=== PATIENT | female | born 1970 | race African-American/Black ===

== ENCOUNTER → 2019-04-21 18:24 | Outpatient (CLI) | payer OTHER, SELFPAY ==
--- NOTE | ~2019-04-21 | MM_ITS ---
EXAMINATION: MM screening robi BI w bindu HISTORY: Screening mammogram TECHNIQUE: Craniocaudal and mediolateral oblique 3-D tomosynthesis images were obtained and synthetic 2-D images were generated. CAD analysis was submitted and interpreted. COMPARISON: 04/07/2018 complete right breast ultrasound 02/25/2018, 08/31/2016, 04/25/2015 bilateral digital screening mammogram examinations 11/19/2012 bilateral diagnostic digital mammogram and bilateral breast ultrasound examination BREAST PARENCHYMAL COMPOSITION: The breasts are heterogeneously dense, which may obscure small masses . FINDINGS: Multiple surgical clips present in the central right breast; history of prior benign breast biopsy. There are multiple low-density circumscribed masses of the both breasts, more numerous on the left, m easuring up to approximately 2 cm maximal dimension on the left and 7.5 mm on the right; there is wax ing and waning of such benign-appearing opacities over serial examinations consistent with fibrocysti c changes. There is no evidence of suspicious mass, calcification, or architectural distortion to sug gest malignancy in either breast. There has been no suspicious interval change. IMPRESSION: 1. No mammographic evidence of malignancy. 2. Recommend routine screening mammography in one year. BI-RADS Category 2: Benign finding(s). Reviewed, dictated and finalized at location A. 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
== END ==
PROVIDERS: PCP Family Medicine; Visit Provider Family Medicine
DX: Z12.31 Encounter for screening mammogram for malignant neoplasm of breast (principal)
CPT/HCPCS: 77063; 77067

== ENCOUNTER → 2020-01-08 14:06 | Outpatient (CLI) | payer OTHER, SELFPAY ==
--- NOTE | ~2020-01-08 | US_ITS ---
EXAMINATION: US pelvic complete w TV EXAM DATE: 01/08/2020 14:57 INDICATION: Hypertrophy of uterus N85.2 - Hypertrophy of uterus . TECHNIQUE: Pelvic transabdominal and transvaginal sonogram was performed. There are multiple graysca le and Doppler images available for interpretation. There is no prior study for comparison. FINDINGS: Uterus measures 6.4 x 4.3 x 3.4 cm, is retroverted. A focal 3 cm region was measured, prob able fibroid in the fundus. Endometrial stripe measures 5 mm, within normal limits. There are naboth magan cysts. There is no free pelvic fluid. Right adnexa: The ovary measures 3.2 x 2.7 x 3.3 cm and is morphologically normal. Ovarian vascular f low confirmed. Left adnexa: The ovary measures 2.7 x 1.1 x 2.0 cm and is morphologically normal. Ovarian vascular fl ow confirmed. IMPRESSION: 1. Probable fundal fibroid. Overall size of uterus within normal limits. Reviewed, dictated and finalized at location A. 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
== END ==
PROVIDERS: Visit Provider Obstetrics & Gynecology
DX: N85.2 Hypertrophy of uterus (principal)
CPT/HCPCS: 76830; 76856

== ENCOUNTER 2021-06-05 10:00 | Outpatient (CLI) | payer OTHER, SELFPAY ==
--- NOTE | ~2021-06-05 | XR_ITS ---
EXAMINATION: XR hip LT min 2V DATE: 06/05/2021 10:31 INDICATION: Low back pain radiating down the left leg. TECHNIQUE: 2 views of left hip were obtained. COMPARISON: None. FINDINGS: Bone alignment is normal. No fracture. There is mild left hip osteoarthritis. IMPRESSION: 1. Mild left hip osteoarthritis. Reviewed, dictated and finalized at location B.
--- NOTE | ~2021-06-05 | XR_ITS ---
EXAMINATION: XR lumbar spine min 4V EXAM DATE: 06/05/2021 10:31 INDICATION: Low back pain down left leg. TECHNIQUE: Lumber spine frontal, lateral, bilateral oblique projections. Coned down frontal and lat eral L5-S1 lumbar projections for interpretation. Comparison is made to prior examination from 2017. FINDINGS: There is mild to moderate lower, mild mid lumbar facet arthropathy. Mild disc disease from L3 through S1. No spondylolysis. The vertebral bodies are aligned in the AP dimension. Sacrum, sacroi liac joints, sacral arcuate lines are intact. Paraspinal soft tissue is unremarkable. Difficult to ap preciate significant interval change compared to 2018. IMPRESSION: Mild to moderate lower lumbar facet arthropathy, mild disc disease. Reviewed, dictated and finalized at location A. IMPRESSION: Mild to moderate lower lumbar facet arthropathy, mild disc disease .
== END 2021-06-05 10:01 | disposition home or self-care (01) ==
LOC: ANHIMG 10:07
PROVIDERS: PCP Family Medicine; Visit Provider Nurse Practitioner Gerontology
DX: M47.816 Spondylosis without myelopathy or radiculopathy, lumbar region (principal); M16.12 Unilateral primary osteoarthritis, left hip
CPT/HCPCS: 72110; 73502

== ENCOUNTER 2021-07-10 18:30 | Outpatient (CLI) | payer OTHER, SELFPAY ==
--- NOTE | ~2021-07-10 | CT_ITS ---
EXAMINATION: CT lumbar spine wo con DATE: 07/10/2021 19:01 INDICATION: Low back pain, unspecified. TECHNIQUE: Computed tomography (CT) of the lumbar spine was performed without intravenous contrast. A utomated exposure control and iterative reconstruction technique were employed. The dose-length produ ct was 835.19 mGy-cm. COMPARISON: Lumbar spine radiographs 06/05/2021 FINDINGS: There is 4 degrees dextrocurvature of lumbar spine. Vertebral body heights are normal. Ther e is mildly decreased disc height at L3-L4. The following disc levels are specifically discussed: L1-L2: The disc does not extend beyond the endplate margin. There is mild bilateral facet joint osteo arthritis. There is no neural foraminal stenosis. There is no central canal stenosis. L2-L3: The disc is bulging. There is mild bilateral facet joint osteoarthritis. There is mild bilater al neural foraminal stenosis. There is mild central canal stenosis. L3-L4: The disc is bulging. There is mild right and moderate left facet joint osteoarthritis. There i s mild bilateral neural foraminal stenosis. There is mild central canal stenosis. L4-L5: The disc is bulging. There is moderate right and severe left facet joint osteoarthritis. There is mild bilateral neural foraminal stenosis. There is mild central canal stenosis. L5-S1: The disc is mildly bulging. There is moderate right and severe left facet joint osteoarthritis . There is no neural foraminal stenosis. There is mild central canal stenosis. IMPRESSION: 1. Mild lumbar spondylosis. Reviewed, dictated and finalized at location A. IMPRESSION: 1. Mild lumbar spondylosis.
== END 2021-07-10 18:31 | disposition home or self-care (01) ==
PROVIDERS: PCP Family Medicine; Visit Provider Nurse Practitioner Gerontology
DX: M47.896 Other spondylosis, lumbar region (principal)
CPT/HCPCS: 72131

== ENCOUNTER 2022-12-24 13:25 | Emergency (ER) | payer OTHER, SELFPAY ==
--- NOTE | 2022-12-24 13:30 | PC.NURSE ---
patient called for triage states unable to wait at this time. patient alert and oriented x4 adbised to come back to ER if symptoms get worse.
== END 2022-12-24 13:30 | disposition left against medical advice (07) ==
PROVIDERS: PCP Family Medicine
DX: Z53.21 Procedure and treatment not carried out due to patient leaving prior to being seen by health care provider (principal)
CPT/HCPCS: 99199

== ENCOUNTER 2023-01-07 09:54 | Outpatient (CLI) | payer OTHER, SELFPAY ==
[2023-01-07 10:22] LABS: Basophils Absolute Auto 0.1 K/mm3 (0.0-0.1); Basophils Percent Auto 0.8 % (0.2-1.2); Eosinophils Absolute Auto 0.1 K/mm3 (0-0.3); Eosinophils Percent Auto 0.9 % (0-4.4); Hematocrit 40.2 % (37.0-47.0); Hemoglobin 13.2 g/dL (12.0-15.0); Immature Granulocyte Absolute 0.01 K/mm3 (0.00-0.031); Immature Granulocyte Percent A 0.2 % (0-0.5); Lymphocytes Absolute Auto 2.15 K/mm3 (0.9-3.2); Mean Corpuscular HGB Conc 32.8 g/dl (32-36); Mean Corpuscular Hemoglobin 29.7 pg (26-34); Mean Corpuscular Volume 90.5 fl (80-100); Mean Platelet Volume 10.9 fl (7.4-10.4); Monocytes Absolute Auto 0.3 K/mm3 (0.1-0.6); Monocytes Percent Auto 5.1 % (2.6-8.5); Neutrophils Absolute Auto 3.9 K/mm3 (1.3-6.7); Platelet Count Result 187 k/mm3 (150-375); Red Blood Count 4.44 M/mm3 (4.2-5.4); Red Cell Distribution Width 12.8 % (11.5-14.5); White Blood Count 6.5 K/mm3 (4.5-10.0)
[2023-01-07 10:33] LABS: Alanine Aminotransferase 15 U/L (6-35); Albumin Level 4.3 g/dL (3.5-5.1); Alkaline Phosphatase 112 U/L (38-126); Anion Gap 9 mmol/L (8-16); Aspartate Amino Transferase 20 U/L (14-36); Bilirubin,Total 0.8 mg/dL (0.2-1.3); Blood Urea Nitrogen 20 mg/dL (7-17); Calcium 9.7 mg/dL (8.4-10.2); Carbon Dioxide 28 mmol/L (22-30); Chloride 104 mmol/L (98-107); Cholesterol 171 mg/dL (0-200); Estimated Glomerular Filt Rate 57; Glucose 93 mg/dL (65-110); HDL Direct 42 mg/dL; Potassium 3.9 mmol/L (3.4-5.0); Sodium 141 mmol/L (137-145); Triglycerides 48 mg/dL (<150)
[2023-01-07 10:44] LABS: LDL Cholesterol Direct 95 mg/dL
== END 2023-01-07 09:55 | disposition home or self-care (01) ==
LOC: ANHLAB 09:55
PROVIDERS: PCP Family Medicine; Visit Provider Family Medicine
DX: E78.2 Mixed hyperlipidemia (principal); I10 Essential (primary) hypertension
CPT/HCPCS: 36415; 80053; 80061; 85025

== ENCOUNTER 2023-10-02 16:39 | Outpatient (CLI) | payer OTHER, SELFPAY ==
[2023-10-02 17:19] LABS: Alanine Aminotransferase 12 U/L (6-35); Albumin Level 4.4 g/dL (3.5-5.1); Alkaline Phosphatase 137 U/L (38-126); Aspartate Amino Transferase 21 U/L (14-36); Bilirubin,Total 0.3 mg/dL (0.2-1.3)
== END 2023-10-02 16:40 | disposition home or self-care (01) ==
LOC: ANHLAB 16:41
PROVIDERS: PCP Family Medicine; Visit Provider Obstetrics & Gynecology
DX: N95.1 Menopausal and female climacteric states (principal)
CPT/HCPCS: 36415; 80076

== ENCOUNTER 2023-12-27 01:35 | Day surgery (SDC) | payer OTHER, SELFPAY ==
[2023-12-17 13:40] VITALS: BMI 34.4
[2023-12-27 07:48] VITALS: BP 134/80; PULSE 86; RESP 16; TEMP 36.2; O2SAT 100
--- NOTE | 2023-12-27 07:56 | WPDANESEPPF ---
Anes - Initial Pre Proc Eval Procedure: Operation Date: 12/27/23 09:00 Proposed Procedures p Screening Colonoscopy - Ish Hearn MD Date/Time: 12/27/23 07:56 Surgeon: Ish Hearn MD Pre Op Diagnosis: neoplasm screening Patient Data Age: 53 Gender: F Height: 1.63 m Weight: 87.5 kg Last Vital Signs Temp 36.2 C L 12/27/23 07:48 Pulse 86 12/27/23 07:48 Resp 16 12/27/23 07:48 BP 134/80 12/27/23 07:48 Pulse Ox 100 12/27/23 07:48 O2 Del Method Room Air 12/27/23 07:48 Allergies Allergy/AdvReac Type Severity Reaction Status Date / Time No Known Allergies Allergy Verified 12/27/23 07:40 Home Medications Medication Instructions Recorded Confirmed Type topiramate 25 mg tablet 25 mg PO QHS #90 tabs 07/18/23 12/27/23 Rx tizanidine 2 mg tablet 2 mg PO TID PRN muscle spasticity 11/29/23 12/27/23 Rx #90 tabs gabapentin 100 mg capsule 100 mg PO DAILY 12/17/23 12/27/23 History rizatriptan 10 mg tablet See Rx Instructions .Route 12/17/23 12/27/23 History .COMPLEX PRN Headache Patient hx anesthesia problems: none Family hx anesthesia problems: none Results Review: All pre-operative results and documents have been reviewed as part of the pre-operative evaluation. [facility] Past Medical History Medical History History of endometriosis Hordeolum externum left lower eyelid Hordeolum externum left upper eyelid Hordeolum externum of right eye Hordeolum internum of right upper eyelid Left hip pain Low back pain Migraines Pelvic pain [id number] condition Sciatic leg pain Trochanteric bursitis of left hip Trochanteric bursitis of left hip Well woman exam with routine gynecological exam Surgical History Surgical History H/O laparoscopy Family History Family History Mother Breast cancer Grandparent Breast cancer Diabetes mellitus Other Cervical cancer Social History Social History Social History: Smoking status: Never smoker Second hand tobacco smoke exposure: No Alcohol intake: never Substance use: never Substance use type: does not use Lack of Transportation: No Lack of Food: Never True Current Housing: I Have Housing Concerned About Future Housing: No Difficulty Paying Gas/Electric Bills: No Difficulty Paying for Meds: No Currently Unemployed: No Education: Master's Degree or Higher Difficulty w/ Childcare or Family Care: No Living arrangements: with family Occupation/Education: occupation 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 Gender identity (if verbalized by the patient): Female Sexual Orientation (if Verbalized by the Patient): Straight or Heterosexual Spiritual care concerns: No Anes - Eval Final PreProcedure Day of Procedure 12/27/23 07:56 Patient weight: obese Heart: regular rate and rhythm Lungs: clear to auscultation Airway: Mallampati scale class III Neurological: alert and oriented Last oral intake: >/= 8 hours ASA classification: III Emergent: no Anesthetic plan: proceed Anesthesia type and monitoring: general GIVS and standard monitoring Results Review: All pre-operative results and documents have been reviewed as part of the pre-operative evaluation. Informed Consent: The patient's anesthetic plan and its attendant risks and benefits were discussed with the patient/family/POA. Questions were solicited and answers provided to the satisfaction of the patient/family/POA.
[2023-12-27] MEDS: LACTATED RINGERS 1,000 ML 150 ML IV CONT (08:00)
--- NOTE | 2023-12-27 09:12 | PM.HPGS ---
History of Present Illness History of Present Illness Consent: Risks, benefits, and alternatives have been discussed and questions answered. Patient agrees to proceed with procedure. Chief complaint: neoplasm screening Narrative: Madeline Resendiz is a 53 year old female here for first screening colonoscopy Review of Systems Review of Systems: All systems reviewed & are unremarkable except as noted in HPI and below PMFSH Past Medical History Medical History (Updated 12/27/23 @ 09:12 by Ish Hearn MD) Colon cancer screening History of endometriosis Hordeolum externum left lower eyelid Hordeolum externum left upper eyelid Hordeolum externum of right eye Hordeolum internum of right upper eyelid Left hip pain Low back pain Migraines Pelvic pain [id number] condition Sciatic leg pain Trochanteric bursitis of left hip Trochanteric bursitis of left hip Well woman exam with routine gynecological exam Surgical History Surgical History H/O laparoscopy Family History Family History Mother Breast cancer Grandparent Breast cancer Diabetes mellitus Other Cervical cancer Social History Social History Social History: Smoking status: Never smoker Second hand tobacco smoke exposure: No Alcohol intake: never Substance use: never Substance use type: does not use Lack of Transportation: No Lack of Food: Never True Current Housing: I Have Housing Concerned About Future Housing: No Difficulty Paying Gas/Electric Bills: No Difficulty Paying for Meds: No Currently Unemployed: No Education: Master's Degree or Higher Difficulty w/ Childcare or Family Care: No Living arrangements: with family Occupation/Education: occupation 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 Gender identity (if verbalized by the patient): Female Sexual Orientation (if Verbalized by the Patient): Straight or Heterosexual Spiritual care concerns: No Meds Home Medications and Allergies Home Medications Medication Instructions Recorded Confirmed Type topiramate 25 mg tablet 25 mg PO QHS #90 tabs 07/18/23 12/27/23 Rx tizanidine 2 mg tablet 2 mg PO TID PRN muscle spasticity 11/29/23 12/27/23 Rx #90 tabs gabapentin 100 mg capsule 100 mg PO DAILY 12/17/23 12/27/23 History rizatriptan 10 mg tablet See Rx Instructions .Route 12/17/23 12/27/23 History .COMPLEX PRN Headache Allergies Allergy/AdvReac Type Severity Reaction Status Date / Time No Known Allergies Allergy Verified 12/27/23 07:40 Vital Signs Vital Signs - 24 hr 12/27/23 07:48 Temperature 97.2 F L Pulse Rate 86 Respiratory Rate 16 Blood Pressure 134/80 Pulse Oximetry 100 Oxygen Delivery Room Air Exam Const: General: comfortable and no acute distress HENMT: Face/Nose/Sinus: Normal nares present Eyes: General: appearance normal, both eyes and all related structures Neck: Neck: no JVD Resp: Auscultation: clear to auscultation bilaterally Cardio: Rate: regular rate Rhythm: regular rhythm GI: Inspection: non-distended GI Palp: Yes Soft to palpation Skin: General skin exam: normal color Neuro: General: gait normal Speech: normal speech Extrem: General: normal to inspection Psych: Mental Status: mental status grossly normal Assessment and Plan Assessment and plan (1) Colon cancer screening: Code(s): Z12.11 - Encounter for screening for malignant neoplasm of colon Status: Acute Assessment and Plan: colonoscopy
[2023-12-27 09:34] VITALS: BP 127/77; PULSE 69; RESP 22; O2SAT 98
[2023-12-27 09:44] VITALS: BP 138/84; PULSE 63; RESP 21; O2SAT 100
[2023-12-27 09:54] VITALS: BP 150/90; PULSE 61; RESP 19; O2SAT 100
== END 2023-12-27 10:05 | disposition home or self-care (01) ==
PROVIDERS: PCP Family Medicine; Visit Provider Internal Medicine Gastroenterology
PROC: 0DJD8ZZ Inspection of Lower Intestinal Tract, Via Natural or Artificial Opening Endoscopic (ICD-10-PCS; CPT 45378; principal; 2023-12-27 09:00)
DX: Z12.11 Encounter for screening for malignant neoplasm of colon (principal); E66.9 Obesity, unspecified; Z68.33 Body mass index [BMI] 33.0-33.9, adult
CPT/HCPCS: 45378; J2704; J7120

== ENCOUNTER 2024-06-05 18:44 | Emergency (ER) | payer OTHER, SELFPAY ==
[2024-06-05 18:55] VITALS: BP 138/92; PULSE 84; RESP 16; TEMP 36.6; O2SAT 100
--- NOTE | 2024-06-05 19:03 | ED_ITS ---
HPI - Ear Problem General Chief complaint: Ear Stated complaint: Congestion/Ear Pain Time Seen by Provider: 06/05/24 18:45 Source: patient Mode of arrival: ambulatory Limitations: no limitations History of Present Illness HPI Narrative: Madeline is a 53-year-old female patient presenting to the clinic today with complaints of sinus congestion, cough, and pressure and bilateral ear congestion x2 weeks. Cough is productive with some yellow phlegm. She also reports that she thinks she may have some cotton stuck in her right ear. Denies any fevers, chills, body aches, chest pain, or shortness of breath. Related Data Allergies Allergy/AdvReac Type Severity Reaction Status Date / Time No Known Allergies Allergy Verified 06/05/24 18:50 Review of Systems Review of Systems: Pertinent positives per HPI. Patient denies any fever, chills, rash, visual changes, dizziness, shortness of breath, chest pain, palpitations, nausea, vomiting, diarrhea, constipation, abdominal pain, or any urinary issues. [facility] Past Medical History Medical History Colon cancer screening Trochanteric bursitis of left hip Trochanteric bursitis of left hip Left hip pain Low back pain Sciatic leg pain Hordeolum externum left lower eyelid Hordeolum internum of right upper eyelid [id number] condition Hordeolum externum left upper eyelid Hordeolum externum of right eye Pelvic pain History of endometriosis Migraines Well woman exam with routine gynecological exam Surgical History Surgical History H/O laparoscopy Family History Family History Mother Breast cancer Grandparent Breast cancer Diabetes mellitus Other Cervical cancer Social History Social History Social History: Smoking status: Never smoker Second hand tobacco smoke exposure: No Alcohol intake: never Substance use: never Substance use type: does not use Lack of Transportation: No Lack of Food: Never True Current Housing: I Have Housing Concerned About Future Housing: No Difficulty Paying Gas/Electric Bills: No Difficulty Paying for Meds: No Currently Unemployed: No Education: Master's Degree or Higher Difficulty w/ Childcare or Family Care: No Living arrangements: with family Occupation/Education: occupation 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 There is no relevant family history pertinent to the patient complaint. Exam Narrative: General: Well-developed, well nourished, in no apparent distress Head: Normocephalic, atraumatic Eyes: Pupils equally round and reactive to light bilaterally, EOM intact, sclera and conjunctive clear, no discharge, lids normal Ears: Cotton foreign body in the right ear canal, removed using alligator forceps, patient tolerated well, TMs intact and congested, ear canals clear, no drainage, grossly hearing normal. Nose: Nares patent, yellow nasal discharge, moderate inflammation, maxilla sinus tenderness. Mouth: Oral pharynx without lesions or masses, good dentition, MMM. Neck: Supple, trachea midline, no enlargement of anterior or posterior cervical nodes, no thyroid masses or goiter palpable. Cardio: Regular rate and rhythm, s1 and s2 normal, no murmur appreciated. Resp: Clear to auscultation bilaterally, no rhonchi, rales, wheezing or rubs Course Course Emergency Course: Portions of this record may have been created with voice recognition software. Level of Care: Express Care Visit Vital Signs Vital signs: Vital Signs Temperature 36.6 C 06/05/24 18:55 Pulse Rate 84 06/05/24 18:55 Respiratory Rate 16 06/05/24 18:55 Blood Pressure 138/92 H 06/05/24 18:55 Pulse Oximetry 100 06/05/24 18:55 Oxygen Delivery Room Air 06/05/24 18:55 Temperature 36.6 C 06/05/24 18:55 Pulse Rate 84 06/05/24 18:55 Respiratory Rate 16 06/05/24 18:55 Blood Pressure 138/92 H 06/05/24 18:55 Pulse Oximetry 100 06/05/24 18:55 Oxygen Delivery Room Air 06/05/24 18:55 Vital signs reviewed Medical Decision Making MDM Narrative Medical decision making narrative: At the time of visit patient is resting comfortably on the exam table. Patient appears to be nontoxic. Plan: Foreign body in the right ear was removed using alligator forceps. I suspect patient has a acute bacterial rhinosinusitis. Prescription for Augmentin and prednisone was sent to the pharmacy. Supportive measures were discussed with the patient and they voiced understanding discharge instructions and agrees to treatment plan. Return precautions reviewed Differential Diagnosis Differential Diagnosis: Otitis media, otitis externa, eustachian tube dysfunction, cerumen impaction, upper respiratory infection, serous otitis, sinus infection Vital Signs Vital Signs: Vital Signs Temperature 36.6 C 06/05/24 18:55 Pulse Rate 84 06/05/24 18:55 Respiratory Rate 16 06/05/24 18:55 Blood Pressure 138/92 H 06/05/24 18:55 Pulse Oximetry 100 06/05/24 18:55 Oxygen Delivery Room Air 06/05/24 18:55 Temperature 36.6 C 06/05/24 18:55 Pulse Rate 84 06/05/24 18:55 Respiratory Rate 16 06/05/24 18:55 Blood Pressure 138/92 H 06/05/24 18:55 Pulse Oximetry 100 06/05/24 18:55 Oxygen Delivery Room Air 06/05/24 18:55 Discharge Plan Discharge Clinical Impression: Acute bacterial rhinosinusitis Acute foreign body of right ear Qualifiers: Encounter type: initial encounter Qualified Code(s): T16.1XXA - Foreign body in right ear, initial encounter Patient Disposition: Home Condition: Stable Instructions: Antibiotic Form, Ear Foreign Body (ED), Rhinosinusitis (ED) Additional Instructions: Cotton tip was removed from the right ear canal Take prescription medications only as prescribed-Augmentin and prednisone Increase fluids and stay well hydrated Tylenol/motrin for pain/fever Flonase and OTC antihistamines as directed Vicks vapor rub to open sinuses Sinus rinses for congestion Cepacol spray, cough drops, throat lozenges, warm tea with honey/lemon, gargle salt water to soothe throat BRAT diet for diarrhea Clear liquids x 24 hours then advance as tolerated for nausea/vomiting Go to the ED if you develop a worsening in your condition- high fever not controlled by Tylenol or Motrin, dehydration, weakness, lethargy, shortness of breath, or chest pain. Follow up with your PCP in 3-5 days if symptoms persist. Patient Language: Macedonian Prescriptions: New prednisone 20 mg tablet 40 mg PO DAILY 5 Days Qty: 10 0RF amoxicillin-pot clavulanate 875-125 mg tablet 1 tablet PO Q12H 10 Days Qty: 20 0RF No Action tizanidine 2 mg tablet 2 mg PO TID PRN (Reason: muscle spasticity) Qty: 90 0RF topiramate 25 mg tablet 25 mg PO QHS Qty: 90 3RF rizatriptan 10 mg tablet See Rx Instructions .ROUTE .COMPLEX PRN (Reason: Headache) Qty: 10 1RF Rx Instructions: TAKE 1 TABLET BY MOUTH AT ONSET OF HEADACHE; IF NO RELIEF MAY REPEAT 1 TABLET AFTER AT LEAST 2 HOURS MAX 3 TABLETS IN 24 HOURS gabapentin 100 mg capsule 100 mg PO DAILY Qty: 90 0RF Follow-up/Referrals: PHYSICIAN,ACCOUNTANT BOOKKEEPER [Primary Care Provider] - Time of Disposition: 19:05 Quality NIHSS Nursing Documentation ED NIHSS nursing documentation: reviewed/agree
== END 2024-06-05 19:07 | disposition home or self-care (01) ==
PROVIDERS: Emergency Provider Nurse Practitioner Family
DX: J01.90 Acute sinusitis, unspecified (principal); T16.1XXA Foreign body in right ear, initial encounter; W44.8XXA Other foreign body entering into or through a natural orifice, initial encounter; N80.9 Endometriosis, unspecified
CPT/HCPCS: 69200; 99213; G0463

== ENCOUNTER 2025-01-08 15:12 | Outpatient (CLI) | payer OTHER, SELFPAY ==
--- NOTE | ~2025-01-08 | MM_ITS ---
EXAMINATION: MM screening [facility] BI w bindu HISTORY: Screening TECHNIQUE: Craniocaudal and mediolateral oblique 3-D tomosynthesis images were obtained and synthetic 2-D images were generated. CAD analysis was submitted and interpreted. COMPARISON: Comparison to multiple prior studies sequentially, with oldest reviewed study dated 04/25/2015. BREAST PARENCHYMAL COMPOSITION: Dense: The breasts are heterogeneously dense, which may obscure small masses FINDINGS: There are multiple waxing and waning bilateral breast masses most of which have diminished in size compared with 04/21/2019. These were previously characterized as cysts by ultrasound. There is no evidence of new suspicious mass, calcification, or architectural distortion to suggest malignancy in either breast. There has been no suspicious interval change. IMPRESSION: 1. No mammographic evidence of malignancy. 2. Recommend routine screening mammography in one year. BI-RADS Category 2: Benign finding(s). Reviewed, dictated and finalized at location [facility]. [facility]
--- OUTSIDE RECORDS SUMMARY | 2025-01-08 15:16 | XMS_ITS | Clinical Summary ---
Author Organization [facility] Address [address] [place] [address] Phone Care Team Providers Care Database Admin Name Role Phone Adriana Rueda MD Primary Care Provider [phone] Medications ondansetron (ZOFRAN-ODT) 4 MG TABLET DISPERSIBLE Take 1 Tablet by mouth every 8 hours as needed for Nausea - 1st line. 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 Gender Identity Not on file Sexual Orientation Not on file Last Filed Vital Signs Vital Sign Reading Time Taken Comments Blood Pressure 137/85 08/03/2023 7:42 PM CDT Pulse 79 08/03/2023 7:42 PM CDT Temperature 36.5 C (97.7 F) 08/03/2023 7:42 PM CDT Respiratory Rate 17 08/03/2023 7:42 PM CDT Oxygen Saturation 100% 08/03/2023 7:42 PM CDT Inhaled Oxygen Concentration - - Weight 88.5 kg (195 lb) 08/03/2023 5:23 PM CDT Height 162.6 cm (5' 4) 08/03/2023 5:23 PM CDT Body Mass Index 33.47 08/03/2023 5:23 PM CDT Plan of Treatment Health Maintenance Due Date Last Done Comments Hepatitis C Virus (HCV) Screening 1970 Mammogram 1971 TdaP Immunization 1971 Hepatitis B Immunization (1 of 3 - 19+ 3-dose series) 10/13/1990 Pap Smear 10/13/1992 Cervical Cancer Screening (CCS) 10/13/2001 HPV/Cotest 10/13/2001 Cologuard 10/13/2016 Colonoscopy 10/13/2016 Colorectal Cancer Screening 10/13/2016 Immunochemical Fecal Occult Blood 10/13/2016 Pneumococcal Immunization (5 0+ years) (1 of 1 - PCV) 10/13/2021 Zoster Immunization (1 of 2) 10/13/2021 Influenza Immunization (#1) 2024 SARS-COV-2 Immunization ( - season) 2024 01/30/2021, 06/13/2020, 05/23/2020 Respiratory Syncytial Virus (RSV) Immunization (Adult) (1 - 1-dose 75+ series) 10/13/2046 Human Papillomavirus (HPV) Immunization Aged Out No longer eligible b ased on patient's age to complete this topic Meningococcal Immunization (ACWY) Aged Out No longer eligible b ased on patient's age to complete this topic Rotavirus Immunization Aged Out No lo nger eligible based on patient's age to complete this topic Insurance [employer] [place] [employer] Care Teams Database Admin Relationship Specialty Start Date End Date Adriana Rueda MD [address] [facility] [address] [place] [address] PCP - General Family Medicine 08/03/23
--- OUTSIDE RECORDS SUMMARY | 2025-01-08 15:16 | XMS_ITS | Clinical Summary ---
Author Organization [facility] Address [address] [place] [address] Phone Care Team Providers Care Supervisor Histology Name Role Phone Adriana Rueda MD Primary Care Provider [phone] Allergies No known active allergies Medications rizatriptan (MAXALT) 10 mg Tablet TK 1 T PO AOS OF FONG AND 1 T 2 H LATER IF NEEDED. NO MORE THAN 2 TS IN 24 H 0 04/05/2018 Active tiZANidine (ZANAFLEX) 2 mg Capsule TK 1 C PO Q 8 H 0 01/30/2018 Active meloxicam (MOBIC) 7.5 mg tablet TK 1 T PO QD WF 0 04/01/2018 Active benzonatate (TESSALON) 100 mg capsule TK 1 C PO Q 8 H PRN 0 04/16/2018 Active acetaminophen (TYLENOL) 325 mg tablet Take 500 mg by mouth every 6 hours as needed. Active Active Problems Problem Noted Date Diagnosed Date Hyperesthesia 08/27/2018 Family history of breast cancer 07/16/2018 Intraductal papilloma of breast, right 9 Nipple discharge 04/10/2018 Sign and symptom in breast 04/10/2018 Fibrocystic changes of left breast 04/10/2018 Resolved Problems Problem Noted Date Diagnosed Date Resolved Date Abnormal mammogram of left breast 04/10/2018 05/02/2018 Social History Tobacco Use Types Packs/Day Years Used Date Smoking Tobacco: Never Smokeless Tobacco: Never Alcohol Use Standard Drinks/Week Comments No 0 (1 standard drink = 0.6 oz pur e alcohol) Comments No Sex and Gender Information Value Date Recorded Sex Assigned at Not on file 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 Gender Identity Not on file Sexual Orientation Not on file Last Filed Vital Signs Vital Sign Reading Time Taken Comments Blood Pressure 118/87 09/10/2018 11:24 AM CDT Pulse 81 07/16/2018 3:49 PM CDT Temperature 37 C (98.6 F) 09/10/2018 11:24 AM CDT Respiratory Rate - - Oxygen Saturation 98% 09/10/2018 11: 24 AM CDT Inhaled Oxygen Concentration - - Weight 82.9 kg (182 lb 11.2 oz) 019 11:24 AM CDT Height 162.6 cm (5' 4) 09/10/2018 11:2 4 AM CDT Body Mass Index 31.36 09/10/2018 11:24 AM CDT Plan of Treatment Health Maintenance Due Date Last Done Comments DTAP/TDAP/TD VACCINES (1 - Tdap) 10/13/1990 HEPATITIS B VACCINES (1 of 3 - 19+ 3-dose series) 10/13/1990 HPV/Cotest (21-29) 10/13/1992 CERVICAL CANCER SCREENING 10/13/2001 HPV/Cotest (30-65) 10/13/2001 PAP SMEAR 10/13/2001 COLORECTAL SCREENING 10/13/2016 Colorectal Cancer Screening 10/13/2016 FIT-DNA Q 3 years 10/13/2016 FIT/FOBT Q 1 year 10/13/2016 Flex Sig/CT Colonography Q 5 years 10/13/2016 BREAST CANCER SCREENING 02/25/2019 02/25/19 19, 08/31/2016, 04/25/2015 ZOSTER VACCINE (1 of 2) 10/13/2021 INFLUENZA VACCINE (#1) 2024 Procedures Procedure Name Priority Date/Time Associated Diagnosis Comments MAMMO SCREENING BILAT Routine 02/25/2018 from Last 3 Months or Most Recently Relevant to Health Maintenance Results * MAMMO SCREENING BILAT (02/25/2018) Anatomical Region Laterality Modality Breast Bilateral Mammography us Abstract Provider MAMMO ORDERABLES Final Result from Last 3 Months or Most Recently Relevant to Health Maintenance Insurance Life is [employer] OPEN ACCESS Care Teams Supervisor Histology Relationship Specialty Start Date End Date Adriana Rueda MD PCP - General Family Practice 04/10/18
--- OUTSIDE RECORDS SUMMARY | 2025-01-08 15:16 | XMS_ITS | Clinical Summary ---
Author Organization [facility] Address [address] [place] [address] Care Team Providers Care Demurrage Agent Name Role Phone Adriana Rueda MD Primary Care Provider + Source Comments [facility],non-owned Affiliates and Associated Physician Practices is amultiple site organization consisting of ambulatory clinics and hospital sitesin [place], [place], [place] and [place]. This disclosure is being madepursuant to the Care Everywhere program and may not contain all information available regarding this patient. Last updated 17.[facility] Allergies No known active allergies Medications * Be aware that medications may not be up to date on this document. Alwaysverify current medications with the patient. 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 e yes 11/03/2021 Social History Tobacco Use Types Packs/Day Years Used Date Smoking Tobacco: Never Smokeless Tobacco: Never Alcohol Use Standard Drinks/Week Comments Not Currently 0 (1 standard drink = 0.6 oz pur e alcohol) Comments Unknown Sex and Gender Information Value Date Recorded Sex Assigned at Not on file 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 Gender Identity Not on file Sexual Orientation Not on file Plan of Treatment Health Maintenance Due Date Last Done Comments COLOGUARD (AGES 45-75) - COL ON CA SCREENING 1971 COLON MONITORING 1971 COLONOSCOPY - COLON CA SCREENING 1971 CT COLONOGRAPHY - COLON CA SCREENING 1971 Colorectal Cancer Screening 1971 FIT - COLON CA SCREENING 1971 FLEX SIG - COLON CA SCREENING 1971 LIPID TESTING 1971 MAMMOGRAM 1971 HIV SCREENING 10/13/1986 HEPATITIS C SCREENING 10/09/1989 DTAP/TDAP/TD VACCINES (1 - Tdap) 10/13/1990 HEPATITIS B VACCINE (1 of 3 - 19+ 3-dose series) 10/13/1990 Cervical Cancer Screening 10/13/1992 PAP SMEAR 10/13/1992 PAP with HPV 10/13/2001 PNEUMOCOCCAL VACCINE 50+ (1 of 1 - PCV) 10/13/2021 ZOSTER VACCINE (1 of 2) 10/13/2021 DEPRESSION SCREENING 02/19/2024 COVID-19 VACCINE (1 - 2024-2 6 season) 2024 INFLUENZA VACCINE (#1) 2024 HIB VACCINE Aged Out No longer eligi ble based on patient's age to complete this topic HPV VACCINE Aged Out No longer eligi ble based on patient's age to complete this topic MENINGOCOCCAL (Group B) VACC INE SHARED DECISION-MAKING Aged Out No longer eligibl e based on patient's age to complete this topic MENINGOCOCCAL GROUPS A/C/Y/W VACCINE Aged Out No longer eligible b ased on patient's age to complete this topic Insurance [employer] Care Teams Demurrage Agent Relationship Specialty Start Date End Date Adriana Rueda MD [address] [place] [address] PCP - General 04/07/18
== END 2025-01-08 15:13 | disposition home or self-care (01) ==
LOC: CHSIMG 15:14
PROVIDERS: PCP Family Medicine; Visit Provider Obstetrics & Gynecology
DX: Z12.31 Encounter for screening mammogram for malignant neoplasm of breast (principal)
CPT/HCPCS: 77063; 77067

== ENCOUNTER 2025-02-09 19:46 | Emergency (ER) | payer OTHER, SELFPAY ==
[2025-02-09 20:02] VITALS: BP 127/74; PULSE 77; RESP 16; TEMP 36.5; O2SAT 100
== END 2025-02-09 20:05 | disposition left against medical advice (07) ==
PROVIDERS: Emergency Provider Nurse Practitioner; PCP Family Medicine
DX: Z53.21 Procedure and treatment not carried out due to patient leaving prior to being seen by health care provider (principal)
CPT/HCPCS: 99199